=== PATIENT | male | born 1990 | race Caucasian/White ===

== ENCOUNTER 2021-08-12 16:40 | Emergency (ER) | payer MEDICAID ==
[~2021-08-12] VITALS: Ht 167.6 cm; Wt 99.8 kg
[2021-08-12 16:52] VITALS: BP 165/109
--- NOTE | 2021-08-12 16:57 | NUR ---
TACOS. HANDED ON URINE CUP.
--- NOTE | 2021-08-12 17:00 | NUR ---
BIB FAMILY C/O 01/14 MID CHEST PAIN, LEGS TINGLING X 1 WEEK. DRINK ALCOHOL 12 ONCES TODAY. PMH: ALCOHOLIC
[2021-08-12 18:43] LABS: BASOPHILS # (AUTO) 0.1 K/uL (0.00-0.22); BASOPHILS % (AUTO) 0.8 % (0.0-2.0); HEMOGLOBIN 17.2 g/dL (12.0-18.0); MEAN CORPUSCULAR HGB CONC 35 g/dL (33-37); MONOCYTES % (AUTO) 10.7 % (1.7-9.3); NEUTROPHILS # (AUTO) 3.5 K/uL (1.8-7.7); NEUTROPHILS % (AUTO) 49.9 % (42.2-75.2); RED CELL DISTRIBUTION WIDTH 15.5 % (11.6-13.7)
[2021-08-12 18:49] LABS: ALBUMIN 4.3 g/dL (3.4-5.0); CARBON DIOXIDE 25.8 mmol/L (21-32); CREATININE 0.8 mg/dL (0.6-1.3); MAGNESIUM 2.2 mg/dL (1.8-2.4); PHOSPHORUS 2.9 mg/dL (2.5-4.9); POTASSIUM 3.8 mmol/L (3.5-5.1); TOTAL BILIRUBIN 1.5 mg/dL (0.0-1.0)
[2021-08-12 18:55] LABS: EOSINOPHILS # (AUTO) 0.1 K/uL (0-0.4); EOSINOPHILS % (AUTO) 2.1 % (0.0-4.0); HEMATOCRIT 48.7 % (36-52); LYMPHOCYTES # (AUTO) 2.6 K/uL (2.0-11.5); LYMPHOCYTES % (AUTO) 36.5 % (20.5-51.1); MEAN CORPUSCULAR HEMOGLOBIN 35 pg (27-31); MEAN CORPUSCULAR VOLUME 98.6 fL (80-94); MONOCYTES # (AUTO) 0.8 K/uL (0.8-1.0); PLATELET COUNT (AUTO) 185 K/uL (140-450); RED BLOOD CELL COUNT(AUTO) 4.94 MIL/uL (4.20-6.10); WHITE BLOOD COUNT (AUTO) 7.1 K/uL (4.8-10.8)
[2021-08-12 19:42] VITALS: BP 165/109
--- NOTE | 2021-08-12 19:42 | NUR ---
Patient discharged with v/s stable. Written and verbal after care instructions given and explained. Patient verbalized understanding. Ambulatory with steady gait. All questions addressed prior to discharge. Advised to follow up with PMD.
== END 2021-08-12 19:42 | disposition home or self-care (01) ==
LOC: MED 16:40
DX: E87.2 Acidosis (principal); F10.129 Alcohol abuse with intoxication, unspecified; R20.2 Paresthesia of skin; R07.89 Other chest pain; R00.2 Palpitations; K92.0 Hematemesis
CPT/HCPCS: 36415; 80053; 83690; 83735; 84100; 85025; 93005; 99284